=== PATIENT | male | born 1990 | race African-American/Black ===

== ENCOUNTER 2019-06-15 07:09 | Emergency (ER) | payer MEDICAID, OTHER ==
[~2019-06-15] VITALS: Ht 175.3 cm; Wt 100.0 kg
[~2019-06-15 07:09] MED LIST: albuterol
[2019-06-15] MEDS ORDERED: PREDNISONE 20MG TABLET PO STA (07:19)
[2019-06-15] MEDS ORDERED: IPRATROPIUM BROMIDE (0.02%) 0.5MG/2.5ML NEB HHN STA (07:19)
[2019-06-15] MEDS ORDERED: ALBUTEROL (0.083%) 2.5MG/3ML NEB HHN STA (07:19)
[2019-06-15 08:51] VITALS: BP 128/78
== END 2019-06-15 08:57 | disposition home or self-care (01) ==
LOC: ER 07:09
DX: J45.901 Unspecified asthma with (acute) exacerbation (principal); F12.10 Cannabis abuse, uncomplicated
CPT/HCPCS: 71045; 94644; 99285; J7512; J7611; Z7610

== ENCOUNTER 2019-06-28 04:30 | Emergency (ER) | payer MEDICAID ==
[~2019-06-28] VITALS: Ht 175.3 cm; Wt 102.0 kg
[2019-06-28] MEDS ORDERED: PREDNISONE 20MG TABLET PO STA (05:02)
[2019-06-28] MEDS ORDERED: IPRATROPIUM BROMIDE (0.02%) 0.5MG/2.5ML NEB HHN STA (05:02)
[2019-06-28] MEDS ORDERED: ALBUTEROL (0.083%) 2.5MG/3ML NEB HHN STA (05:02)
[2019-06-28 06:40] VITALS: BP 125/79
== END 2019-06-28 06:42 | disposition home or self-care (01) ==
LOC: ER 04:30
DX: J45.901 Unspecified asthma with (acute) exacerbation (principal); F17.210 Nicotine dependence, cigarettes, uncomplicated; R03.0 Elevated blood-pressure reading, without diagnosis of hypertension
CPT/HCPCS: 94644; 99285; J7512; J7611; Z7610

== ENCOUNTER 2019-08-11 08:35 | Emergency (ER) | payer MEDICAID ==
[~2019-08-11] VITALS: Ht 175.3 cm; Wt 90.0 kg
[2019-08-11] MEDS ORDERED: IPRATROPIUM/ALBUTEROL 0.5-3(2.5)MG/3ML NEB ONE (09:00)
[2019-08-11] MEDS ORDERED: METHYLPREDNISOLONE SOD SUCC 125 MG/2 ML VIAL IV STA (09:04)
[2019-08-11] MEDS ORDERED: IPRATROPIUM BROMIDE (0.02%) 0.5MG/2.5ML NEB HHN STA ×2 (09:04)
[2019-08-11] MEDS ORDERED: MAGNESIUM 2 G PREMIX 50 ML IV ONE (09:15)
[2019-08-11] MEDS ORDERED: IPRATROPIUM/ALBUTEROL 0.5-3(2.5)MG/3ML NEB HHN ONE ×2 (09:15→11:00)
[2019-08-11 09:19] LABS: HEMATOCRIT. 47.1 % (42.0-52.0); HEMOGLOBIN. 16.6 g/dL (14.0-18.0); MEAN CORPUSCULAR HEMOGLOBIN 31.5 pg (28.0-32.0); MEAN CORPUSCULAR VOLUME 89.2 fL (80.0-94.0); MEAN PLATELET VOLUME 8.7 fl (7.4-10.4); PLATELET 302 x1000/uL (130-400); RED BLOOD CELL COUNT 5.28 mill/uL (4.7-6.1); RED CELL DISTRIBUTION WIDTH 13.3 % (11.6-14.6)
[2019-08-11 09:25] LABS: CHLORIDE 106 mEq/L (98-107)
[2019-08-11] MEDS ORDERED: SODIUM CHLORIDE 0.9% 1,000 ML IV ONE (09:45)
[2019-08-11] MEDS ORDERED: ONDANSETRON HCL 4MG/2ML INJ IV ONE (09:45)
[2019-08-11 10:05] LABS: PLATELET ESTIMATE NORMAL
[2019-08-11 12:29] VITALS: BP 124/90
== END 2019-08-11 12:31 | disposition home or self-care (01) ==
LOC: ER 08:35
DX: J45.901 Unspecified asthma with (acute) exacerbation (principal)
CPT/HCPCS: 36415; 71045; 80053; 85025; 94640; 96374; 96375; 99284; J2930; J3475; J7030; J7620; Z7610

== ENCOUNTER 2019-08-18 08:54 | Inpatient (IN) | payer MEDICAID ==
[2019-08-18] VITALS (10 sets, daily range): BP systolic 107–178; BP diastolic 44–117
[~2019-08-18] VITALS: Ht 175.3 cm; Wt 102.1 kg
[2019-08-18] MEDS ORDERED: ALBUTEROL (0.083%) 2.5MG/3ML NEB HHN STA (09:03)
[2019-08-18] MEDS ORDERED: IPRATROPIUM BROMIDE (0.02%) 0.5MG/2.5ML NEB HHN STA (09:03)
[2019-08-18] MEDS ORDERED: METHYLPREDNISOLONE SOD SUCC 125 MG/2 ML VIAL IV STA (09:03)
[2019-08-18] MEDS ORDERED: SODIUM CHLORIDE 0.9% 1,000 ML IV ONE (09:03)
[2019-08-18] MEDS ORDERED: MAGNESIUM 2 G PREMIX 50 ML IV ONE (09:15)
[2019-08-18] MEDS ORDERED: EPINEPHRINE 1:1000 1 MG/ML AMP SUBCUT ONE (09:15)
[2019-08-18 09:22] LABS: BASOPHILS % 0.6 % (0.0-2.0); EOSINOPHILS % 10.8 % (0.0-5.0); HEMATOCRIT. 43.9 % (42.0-52.0); HEMOGLOBIN. 15.1 g/dL (14.0-18.0); LYMPHOCYTES % 22.8 % (20.0-50.0); MEAN CORPUSCULAR HEMOGLOBIN 31.3 pg (28.0-32.0); MEAN PLATELET VOLUME 8.4 fl (7.4-10.4); MONOCYTES % 8.4 % (2.0-8.0); NEUTROPHILS % 57.4 % (40.0-76.0); PLATELET 306 x1000/uL (130-400); RED BLOOD CELL COUNT 4.83 mill/uL (4.7-6.1); RED CELL DISTRIBUTION WIDTH 13.3 % (11.6-14.6)
[2019-08-18 09:23] LABS: CHLORIDE 109 mEq/L (98-107)
[2019-08-18 10:18] LABS: BG BASE EXCESS -1.1 mmol/L (-2.0-2.0); BG BILEVEL POS AIRWAY PRESSURE 15/5; BG CARBOXYHEMOGLOBIN 0.1 % (0.5-1.5); BG DEOXYHEMOGLOBIN 0.7 % (0.0-5.0); BG FRACTION INSPIRED OXYGEN 60; BG METHEMOGLOBIN 0.3 % (0.0-1.5); BG OXYGEN SATURATION 99.3 % (92.0-98.5); BG OXYHEMOGLOBIN 98.9 % (94.0-97.0); BG PCO2 52.7 mmHg (35.0-45.0); BG PH 7.311 (7.350-7.450); BG PO2 363.3 mmHg (75.0-100.0); BG SAMPLE SITE RIGHT BRACHIAL; BG TOTAL HEMOGLOBIN 14.7 g/dL (12.0-18.0); BG VENT MODE MASK - BIPAP
[2019-08-18] MEDS ORDERED: GUAIFENESIN 200MG/10ML SUGAR FREE UDC PO PRN (13:15)
[2019-08-18] MEDS ORDERED: ONDANSETRON HCL 4MG/2ML INJ IV PRN (13:15)
[2019-08-18] MEDS ORDERED: ACETAMINOPHEN 325MG TABLET PO PRN (13:15)
[2019-08-18] MEDS ORDERED: HYDROCODONE/ACETAMINOPHEN 5/325MG TABLET PO PRN (13:15)
[2019-08-18] MEDS ORDERED: DOCUSATE SODIUM 100MG CAPSULE PO PRN (13:15)
[2019-08-18] MEDS ORDERED: CLONIDINE 0.1MG TABLET PO PRN (13:15)
[2019-08-18] MEDS: METHYLPREDNISOLONE SOD SUCC 125 MG/2 ML VIAL IV SCH ×2 (15:50→22:43)
[2019-08-18] MEDS: IPRATROPIUM/ALBUTEROL 0.5-3(2.5)MG/3ML NEB HHN SCH ×2 (16:53→21:34)
[2019-08-19] VITALS (16 sets, daily range): BP systolic 13–136; BP diastolic 30–73
[2019-08-19] MEDS: IPRATROPIUM/ALBUTEROL 0.5-3(2.5)MG/3ML NEB HHN SCH ×6 (00:49→20:52)
[2019-08-19] MEDS: METHYLPREDNISOLONE SOD SUCC 125 MG/2 ML VIAL IV SCH ×3 (06:30→21:53)
[2019-08-19 07:02] LABS: HEMATOCRIT. 41.4 % (42.0-52.0); HEMOGLOBIN. 14.2 g/dL (14.0-18.0); MEAN CORPUSCULAR HEMOGLOBIN 30.8 pg (28.0-32.0); MEAN CORPUSCULAR VOLUME 89.7 fL (80.0-94.0); MEAN PLATELET VOLUME 8.5 fl (7.4-10.4); PLATELET 299 x1000/uL (130-400); RED BLOOD CELL COUNT 4.61 mill/uL (4.7-6.1); RED CELL DISTRIBUTION WIDTH 13.6 % (11.6-14.6)
[2019-08-19 07:18] LABS: CHLORIDE 107 mEq/L (98-107)
[2019-08-19 10:01] LABS: PLATELET ESTIMATE NORMAL
[2019-08-19] MEDS: MONTELUKAST SODIUM 10MG TABLET PO SCH (16:17)
[2019-08-20] MEDS: IPRATROPIUM/ALBUTEROL 0.5-3(2.5)MG/3ML NEB HHN SCH ×5 (00:48→16:27)
[2019-08-20 03:52] VITALS: BP 107/61
[2019-08-20] MEDS: METHYLPREDNISOLONE SOD SUCC 125 MG/2 ML VIAL IV SCH ×2 (05:32→15:02)
[2019-08-20 08:00] VITALS: BP 112/71
[2019-08-20 12:00] VITALS: BP 137/44
[2019-08-20] MEDS ORDERED: ALBU18HF2 IH (15:04)
[2019-08-20] MEDS ORDERED: FAMO-135 MT (15:04)
[2019-08-20] MEDS ORDERED: P20 MT (15:04)
[2019-08-20] MEDS ORDERED: MONT10TA21 MT (15:04)
[2019-08-20] MEDS ORDERED: PANT40TA4 MT (15:04)
[2019-08-20] MEDS ORDERED: FLUT1DIS3 INH (15:04)
[2019-08-20] MEDS ORDERED: LORA10TA7 MT (15:04)
[2019-08-20 16:00] VITALS: BP 139/66
[2019-08-20 16:05] VITALS: BP 139/66
[2019-08-20] MEDS: MONTELUKAST SODIUM 10MG TABLET PO SCH (16:26)
== END 2019-08-20 17:19 | disposition home or self-care (01) | DRG 133 ==
LOC: ER 08:54 → 5EST 10:40 → ENRESERV 11:12
PROVIDERS: ADMIT Internal Medicine; ATTEND Internal Medicine
PROC: 5A09357 Assistance with Respiratory Ventilation, Less than 24 Consecutive Hours, Continuous Positive Airway Pressure (ICD-10-PCS; principal; 2019-08-18)
DX: J96.00 Acute respiratory failure, unspecified whether with hypoxia or hypercapnia (principal); D72.1 Eosinophilia; E87.2 Acidosis; J45.902 Unspecified asthma with status asthmaticus; R00.0 Tachycardia, unspecified; I10 Essential (primary) hypertension; J96.02 Acute respiratory failure with hypercapnia; T38.0X5A Adverse effect of glucocorticoids and synthetic analogues, initial encounter; Z87.891 Personal history of nicotine dependence; Y92.89 Other specified places as the place of occurrence of the external cause
CPT/HCPCS: 36415; 36600; 71045; 80048; 82375; 82805; 83880; 84484; 93005; 94640; 94660; 99291; J2930; J3475; J3490; J7030; J7611; J7620

== ENCOUNTER 2020-02-19 00:13 | Inpatient (IN) | payer MEDICAID ==
[2020-02-19] VITALS (8 sets, daily range): BP systolic 121–144; BP diastolic 52–85
[~2020-02-19] VITALS: Ht 175.3 cm; Wt 97.1 kg
[~2020-02-19 00:13] MED LIST changes: +ALBU18HF2 IH; +FAMO-135 MT; +FLUT1DIS3 INH; +LORA10TA7 MT; +MONT10TA21 MT; +P20 MT; +PANT40TA4 MT; -albuterol
[2020-02-19] MEDS ORDERED: METHYLPREDNISOLONE SOD SUCC 125 MG/2 ML VIAL IV STA (00:33)
[2020-02-19] MEDS ORDERED: IPRATROPIUM BROMIDE (0.02%) 0.5MG/2.5ML NEB HHN STA (00:33)
[2020-02-19] MEDS ORDERED: ONDANSETRON HCL 4MG/2ML INJ IV STA (00:33)
[2020-02-19] MEDS ORDERED: SODIUM CHLORIDE 0.9% 1,000 ML IV ONE (00:33)
[2020-02-19] MEDS ORDERED: MAGNESIUM 2 G PREMIX 50 ML IV ONE (00:45)
[2020-02-19 01:08] LABS: BASOPHILS % 0.9 % (0.0-2.0); EOSINOPHILS % 10.8 % (0.0-5.0); HEMATOCRIT. 45.5 % (42.0-52.0); HEMOGLOBIN. 15.7 g/dL (14.0-18.0); LYMPHOCYTES % 30.1 % (20.0-50.0); MEAN CORPUSCULAR HEMOGLOBIN 30.7 pg (28.0-32.0); MEAN CORPUSCULAR VOLUME 89.1 fL (80.0-94.0); MEAN PLATELET VOLUME 8.6 fl (7.4-10.4); MONOCYTES % 9.2 % (2.0-8.0); PLATELET 313 x1000/uL (130-400); RED BLOOD CELL COUNT 5.11 mill/uL (4.7-6.1); RED CELL DISTRIBUTION WIDTH 13.6 % (11.6-14.6)
[2020-02-19 01:11] LABS: CHLORIDE 106 mEq/L (98-107)
[2020-02-19 01:25] LABS: BG BASE EXCESS -2.6 mmol/L (-2.0-2.0); BG BILEVEL POS AIRWAY PRESSURE 15/5; BG CARBOXYHEMOGLOBIN 0.2 % (0.5-1.5); BG DEOXYHEMOGLOBIN 4.3 % (0.0-5.0); BG FRACTION INSPIRED OXYGEN 50; BG HCO3 ACT 23.4 mmol/L (22.0-26.0); BG METHEMOGLOBIN 0.2 % (0.0-1.5); BG OXYGEN SATURATION 95.7 % (92.0-98.5); BG OXYHEMOGLOBIN 95.3 % (94.0-97.0); BG PCO2 45.1 mmHg (35.0-45.0); BG PH 7.333 (7.350-7.450); BG PO2 84.2 mmHg (75.0-100.0); BG SAMPLE SITE RIGHT RADIAL; BG TOTAL HEMOGLOBIN 14.6 g/dL (12.0-18.0); BG VENT MODE MASK - BIPAP; BG VENT RATE 18 set
[2020-02-19] MEDS: ALBUTEROL (0.083%) 2.5MG/3ML NEB HHN SCH ×3 (01:34→02:38)
[2020-02-19] MEDS ORDERED: IPRATROPIUM/ALBUTEROL 0.5-3(2.5)MG/3ML NEB NEB PRN (06:30)
[2020-02-19] MEDS ORDERED: MAGNESIUM/ALUMINUM HYDROXIDE/SIMETHICONE 30ML UDC PO PRN (06:30)
[2020-02-19] MEDS ORDERED: DOCUSATE SODIUM 100MG CAPSULE PO PRN (06:30)
[2020-02-19] MEDS ORDERED: LORAZEPAM 0.5MG TABLET PO PRN (06:30)
[2020-02-19] MEDS ORDERED: ACETAMINOPHEN 325MG TABLET PO PRN ×2 (06:30)
[2020-02-19] MEDS ORDERED: CLONIDINE 0.1MG TABLET PO PRN (06:30)
[2020-02-19] MEDS ORDERED: ZOLPIDEM TARTRATE 5MG TABLET PO PRN (06:30)
[2020-02-19] MEDS ORDERED: KETOROLAC 15MG/ML VIAL IV PRN (06:30)
[2020-02-19] MEDS ORDERED: ONDANSETRON HCL 4MG/2ML INJ IV PRN (06:30)
[2020-02-19] MEDS ORDERED: NITROGLYCERIN 0.4MG TABLET SL SL PRN (06:30)
[2020-02-19] MEDS ORDERED: GUAIFENESIN 200MG/10ML SUGAR FREE UDC PO PRN (06:30)
[2020-02-19] MEDS ORDERED: LEVOFLOXACIN 500MG PREMIX 100 ML IV SCH (08:15)
[2020-02-19] MEDS: GUAIFENESIN/DM 600MG/30MG ER TAB 12HR PO SCH ×2 (08:18→21:25)
[2020-02-19] MEDS ORDERED: ZINC SULFATE 220 MG ( 50 ) CAPSULE PO SCH (10:00)
[2020-02-19] MEDS: METHYLPREDNISOLONE SOD SUCC 125 MG/2 ML VIAL IV SCH ×3 (10:26→22:45)
[2020-02-19] MEDS: ASCORBIC ACID 500 MG TABLET PO SCH ×2 (10:27→21:25)
[2020-02-19] MEDS ORDERED: POTASSIUM CHLORIDE 20MEQ TABLET SR PO SCH (11:00)
[2020-02-19] MEDS: FAMOTIDINE 20MG TABLET PO SCH ×2 (11:42→21:25)
[2020-02-19 14:18] LABS: CLARITY URINE CLEAR (CLEAR); COLOR URINE YELLOW (YELLOW); KETONES URINE TRACE (NEGATIVE); LEUKOCYTE ESTERASE URINE NEGATIVE (NEGATIVE); NITRITE URINE NEGATIVE (NEGATIVE); OCCULT BLOOD URINE NEGATIVE (NEGATIVE); PH URINE 5.5 (4.5-8.0); PROTEIN URINE NEGATIVE (NEGATIVE); SPECIFIC GRAVITY URINE 1.024 (1.005-1.030)
[2020-02-19 14:45] LABS: *BARBITURATES SCREEN URINE NEGATIVE (NEGATIVE)
[2020-02-19 14:47] LABS: *AMPHETAMINES SCREEN URINE PRESUMTIVE POSITIVE (NEGATIVE); *BENZODIAZEPINES SCREEN URINE PRESUMTIVE POSITIVE (NEGATIVE); *COCAINE SCREEN URINE NEGATIVE (NEGATIVE); CANNABINOID URINE SCREEN PRESUMTIVE POSITIVE (NEGATIVE); METHADONE URINE SCREEN NEGATIVE (NEGATIVE); OPIATES URINE SCREEN NEGATIVE (NEGATIVE); PHENCYCLIDINE URINE SCREEN NEGATIVE (NEGATIVE)
[2020-02-19] MEDS: IPRATROPIUM/ALBUTEROL 0.5-3(2.5)MG/3ML NEB HHN SCH ×2 (16:12→20:36)
[2020-02-19] MEDS ORDERED: MONTELUKAST SODIUM 10MG TABLET PO SCH (17:00)
[2020-02-20] VITALS: BP 139/86
[2020-02-20] MEDS: IPRATROPIUM/ALBUTEROL 0.5-3(2.5)MG/3ML NEB HHN SCH ×3 (00:55→08:22)
[2020-02-20 02:00] VITALS: BP 115/74
[2020-02-20 04:00] VITALS: BP 120/76
[2020-02-20] MEDS: METHYLPREDNISOLONE SOD SUCC 125 MG/2 ML VIAL IV SCH (05:54)
[2020-02-20 06:00] VITALS: BP 116/67
[2020-02-20 06:52] LABS: HEMATOCRIT. 43.4 % (42.0-52.0); HEMOGLOBIN. 15.2 g/dL (14.0-18.0); MEAN CORPUSCULAR VOLUME 88.4 fL (80.0-94.0); MEAN PLATELET VOLUME 9.1 fl (7.4-10.4); PLATELET 294 x1000/uL (130-400); RED BLOOD CELL COUNT 4.91 mill/uL (4.7-6.1); RED CELL DISTRIBUTION WIDTH 13.5 % (11.6-14.6)
[2020-02-20 07:59] VITALS: BP 114/57
[2020-02-20 08:04] LABS: CHLORIDE 105 mEq/L (98-107)
[2020-02-20 08:16] LABS: PHOSPHORUS 3.2 mg/dL (2.5-4.9)
[2020-02-20 08:30] VITALS: BP 139/57
[2020-02-20] MEDS ORDERED: LEVOFLOXACIN 500MG PREMIX 100 ML IV SCH ×2 (09:00)
[2020-02-20] MEDS ORDERED: LORATADINE 10MG TABLET PO SCH (09:00)
[2020-02-20 16:23] LABS: PLATELET ESTIMATE NORMAL
== END 2020-02-20 09:30 | disposition home or self-care (01) | DRG 140 ==
LOC: ER 00:17 → 3WST 03:15 → ENRESERV 08:17
PROVIDERS: ADMIT Internal Medicine; ATTEND Internal Medicine
PROC: 5A09357 Assistance with Respiratory Ventilation, Less than 24 Consecutive Hours, Continuous Positive Airway Pressure (ICD-10-PCS; principal; 2020-02-19)
DX: J44.1 Chronic obstructive pulmonary disease with (acute) exacerbation (principal); J96.01 Acute respiratory failure with hypoxia; J96.02 Acute respiratory failure with hypercapnia; J45.902 Unspecified asthma with status asthmaticus; D72.1 Eosinophilia; E87.6 Hypokalemia; F12.10 Cannabis abuse, uncomplicated; F13.10 Sedative, hypnotic or anxiolytic abuse, uncomplicated; Z82.5 Family history of asthma and other chronic lower respiratory diseases; Z87.01 Personal history of pneumonia (recurrent); Z79.899 Other long term (current) drug therapy
CPT/HCPCS: 36415; 36600; 71045; 80053; 80061; 80305; 81003; 82375; 82805; 83036; 83605; 83735; 83880; 84100; 84484; 85025; 93970; 94640; 99291; J1956; J2405; J2930; J3475; J7030

== ENCOUNTER 2021-10-31 14:30 | Emergency (ER) | payer MEDICAID ==
[~2021-10-31] VITALS: Ht 175.3 cm; Wt 98.0 kg
[~2021-10-31 14:30] MED LIST changes: -PANT40TA4 MT; +PANT40TA51 MT
[2021-10-31] MEDS ORDERED: LIDOCAINE HCL/PF 1% 10 MG/ML 5ML VIAL INFIL ONE (16:00)
[2021-10-31] MEDS ORDERED: LIDOCAINE HCL 1% 20ML VIAL (Pyxis) INJ INFIL NR (16:32)
[2021-10-31] MEDS ORDERED: IBUPROFEN 600MG TABLET PO STA (16:38)
[2021-10-31] MEDS ORDERED: IBUP-2029 PO (17:25)
[2021-10-31] MEDS ORDERED: CEPH500T PO (17:25)
[2021-10-31] MEDS ORDERED: TETANUS, DIPHTHERIA, PERTUSSIS VAC/PF 0.5ML (>10YR OLD) IM ONE (17:30)
[2021-10-31 17:40] VITALS: BP 120/72
== END 2021-10-31 17:41 | disposition home or self-care (01) ==
LOC: ER 14:45
DX: S01.511A Laceration without foreign body of lip, initial encounter (principal); W01.10XA Fall on same level from slipping, tripping and stumbling with subsequent striking against unspecified object, initial encounter; Y93.89 Activity, other specified; Y92.89 Other specified places as the place of occurrence of the external cause
CPT/HCPCS: 90471; 90715; 99283; J3490

== ENCOUNTER 2021-11-07 16:18 | Emergency (ER) | payer MEDICAID ==
[~2021-11-07] VITALS: Ht 180.3 cm; Wt 84.0 kg
[~2021-11-07 16:18] MED LIST changes: +CEPH500T PO; +IBUP-2029 PO
[2021-11-07 16:33] VITALS: BP 123/49
== END 2021-11-07 18:24 | disposition home or self-care (01) ==
LOC: ER 16:18
DX: Z48.02 Encounter for removal of sutures (principal)
CPT/HCPCS: 99281

== ENCOUNTER 2022-03-15 17:15 | Emergency (ER) | payer MEDICAID, OTHER ==
[~2022-03-15] VITALS: Ht 177.8 cm; Wt 90.0 kg
[2022-03-15 17:20] VITALS: BP 118/70
[2022-03-15] MEDS ORDERED: ONDANSETRON 4MG ODT PO ONE (17:45)
[2022-03-15] MEDS ORDERED: IBUPROFEN 600MG TABLET PO ONE (17:45)
[2022-03-15] MEDS ORDERED: IBUP-2029 MT (19:33)
[2022-03-15] MEDS ORDERED: ONDA4TAB5 MT (19:33)
== END 2022-03-15 19:54 | disposition home or self-care (01) ==
LOC: ER 17:15
DX: U07.1 COVID-19 (principal)
CPT/HCPCS: 99283

== ENCOUNTER 2022-05-17 08:14 | Emergency (ER) | payer MEDICAID, OTHER ==
[~2022-05-17] VITALS: Ht 182.9 cm; Wt 95.0 kg
[~2022-05-17 08:14] MED LIST changes: +IBUP-2029 MT; +ONDA4TAB5 MT
[2022-05-17 08:16] VITALS: BP 136/84
[2022-05-17] MEDS ORDERED: KETOROLAC 30MG/ML VIAL IV STA (08:24)
[2022-05-17] MEDS ORDERED: SODIUM CHLORIDE 0.9% 1,000 ML IV ONE (08:30)
[2022-05-17 09:29] LABS: BASOPHILS % 0.6 % (0.0-2.0); EOSINOPHILS % 7.1 % (0.0-5.0); HEMATOCRIT. 48.7 % (42.0-52.0); HEMOGLOBIN. 16.3 g/dL (14.0-18.0); MEAN CORPUSCULAR HEMOGLOBIN 30.6 pg (28.0-32.0); MEAN CORPUSCULAR VOLUME 91.4 fL (80.0-94.0); NEUTROPHILS % 63.3 % (40.0-76.0); RED BLOOD CELL COUNT 5.33 mill/uL (4.7-6.1); RED CELL DISTRIBUTION WIDTH 13.7 % (11.6-14.6)
[2022-05-17 09:35] LABS: CHLORIDE 104 mEq/L (98-107)
[2022-05-17] MEDS ORDERED: HALOPERIDOL LACTATE 5MG/ML VIAL IM ONE (09:45)
[2022-05-17] MEDS ORDERED: DIPHENHYDRAMINE 50MG/ML VIAL IV ONE (09:45)
[2022-05-17 10:37] LABS: PLATELET 295 x1000/uL (130-400)
[2022-05-17] MEDS ORDERED: ONDA4TAB11 PO (11:10)
== END 2022-05-17 11:19 | disposition home or self-care (01) ==
LOC: ER 08:14
DX: K29.70 Gastritis, unspecified, without bleeding (principal)
CPT/HCPCS: 36415; 80053; 83690; 85025; 96361; 96372; 96374; 96375; 99284; J1200; J1630; J1885; J7030

== ENCOUNTER 2022-05-19 13:58 | Emergency (ER) | payer OTHER ==
[~2022-05-19] VITALS: Ht 167.6 cm; Wt 93.0 kg
[~2022-05-19 13:58] MED LIST changes: +ONDA4TAB11 PO
[2022-05-19] MEDS ORDERED: ONDANSETRON HCL 4MG/2ML INJ IV STA (14:09)
[2022-05-19] MEDS ORDERED: KETOROLAC 30MG/ML VIAL IV STA (14:09)
[2022-05-19] MEDS ORDERED: SODIUM CHLORIDE 0.9% 1,000 ML IV ONE (14:15)
[2022-05-19 14:35] LABS: BASOPHILS % 0.5 % (0.0-2.0); EOSINOPHILS % 0.1 % (0.0-5.0); HEMATOCRIT. 44.3 % (42.0-52.0); HEMOGLOBIN. 15.5 g/dL (14.0-18.0); LYMPHOCYTES % 23.1 % (20.0-50.0); MEAN CORPUSCULAR HEMOGLOBIN 30.8 pg (28.0-32.0); MEAN CORPUSCULAR VOLUME 87.8 fL (80.0-94.0); MEAN PLATELET VOLUME 8.6 fl (7.4-10.4); MONOCYTES % 7.8 % (2.0-8.0); NEUTROPHILS % 68.5 % (40.0-76.0); PLATELET 303 x1000/uL (130-400); RED BLOOD CELL COUNT 5.04 mill/uL (4.7-6.1); RED CELL DISTRIBUTION WIDTH 13.3 % (11.6-14.6)
[2022-05-19 14:44] LABS: CHLORIDE 106 mEq/L (98-107)
[2022-05-19 14:45] LABS: INR 1.2; PROTHROMBIN TIME 12.4 sec (9.6-11.0)
[2022-05-19 14:52] LABS: ETHANOL BLOOD < 10 mg/dL
[2022-05-19] MEDS ORDERED: ONDA4TAB50 MT (17:51)
[2022-05-19] MEDS ORDERED: OMEP40CA20 MT (17:51)
[2022-05-19] MEDS ORDERED: MAGNESIUM/ALUMINUM HYDROXIDE/SIMETHICONE 30ML UDC PO ONE ×2 (18:00→18:15)
[2022-05-19] MEDS ORDERED: ONDANSETRON HCL 4MG/2ML INJ IV NR (18:15)
[2022-05-19] MEDS ORDERED: KETOROLAC 30MG/ML VIAL IV NR (18:15)
[2022-05-19 18:21] VITALS: BP 105/79
[2022-05-19 18:39] LABS: CLARITY URINE CLEAR (CLEAR); COLOR URINE DARK YELLOW (YELLOW); KETONES URINE 3+ (NEGATIVE); LEUKOCYTE ESTERASE URINE NEGATIVE (NEGATIVE); NITRITE URINE NEGATIVE (NEGATIVE); OCCULT BLOOD URINE NEGATIVE (NEGATIVE); PH URINE 8.5 (4.5-8.0); PROTEIN URINE 2+ (NEGATIVE); SPECIFIC GRAVITY URINE 1.029 (1.005-1.030)
[2022-05-19 18:53] LABS: *AMPHETAMINES SCREEN URINE NEGATIVE (NEGATIVE); *BARBITURATES SCREEN URINE NEGATIVE (NEGATIVE); *BENZODIAZEPINES SCREEN URINE NEGATIVE (NEGATIVE); *COCAINE SCREEN URINE PRESUMTIVE POSITIVE (NEGATIVE); CANNABINOID URINE SCREEN PRESUMTIVE POSITIVE (NEGATIVE); METHADONE URINE SCREEN NEGATIVE (NEGATIVE); OPIATES URINE SCREEN NEGATIVE (NEGATIVE); PHENCYCLIDINE URINE SCREEN NEGATIVE (NEGATIVE)
== END 2022-05-19 19:34 | disposition home or self-care (01) ==
LOC: ER 13:58
DX: R10.33 Periumbilical pain (principal); R11.2 Nausea with vomiting, unspecified
CPT/HCPCS: 36415; 74176; 80053; 80305; 80320; 81003; 83690; 85025; 85610; 96361; 96374; 96375; 99284; J1885; J2405; J7030; G0480

== ENCOUNTER 2022-05-24 11:18 | Emergency (ER) | payer OTHER ==
[~2022-05-24] VITALS: Ht 175.3 cm; Wt 82.0 kg
[~2022-05-24 11:18] MED LIST changes: +OMEP40CA20 MT; +ONDA4TAB50 MT
[2022-05-24] MEDS ORDERED: ONDANSETRON 4MG ODT PO STA (12:39)
[2022-05-24] MEDS ORDERED: KETOROLAC 60MG/2ML VIAL IM STA (12:39)
[2022-05-24 12:54] LABS: BASOPHILS % 0.7 % (0.0-2.0); EOSINOPHILS % 7.1 % (0.0-5.0); HEMATOCRIT. 44.9 % (42.0-52.0); HEMOGLOBIN. 15.4 g/dL (14.0-18.0); LYMPHOCYTES % 14.2 % (20.0-50.0); MEAN CORPUSCULAR VOLUME 90.4 fL (80.0-94.0); MEAN PLATELET VOLUME 8.9 fl (7.4-10.4); MONOCYTES % 7.2 % (2.0-8.0); NEUTROPHILS % 70.8 % (40.0-76.0); PLATELET 304 x1000/uL (130-400); RED BLOOD CELL COUNT 4.97 mill/uL (4.7-6.1); RED CELL DISTRIBUTION WIDTH 13.5 % (11.6-14.6)
[2022-05-24 12:57] LABS: CHLORIDE 105 mEq/L (98-107)
[2022-05-24] MEDS ORDERED: KETOROLAC 30MG/ML VIAL IV STA (12:57)
[2022-05-24] MEDS ORDERED: METOCLOPRAMIDE HCL 10MG/2ML VIAL IV STA (12:57)
[2022-05-24] MEDS ORDERED: SODIUM CHLORIDE 0.9% 1,000 ML IV ONE (13:00)
[2022-05-24 13:09] LABS: ETHANOL BLOOD < 10 mg/dL
[2022-05-24] MEDS ORDERED: ONDA4TAB11 PO (14:28)
[2022-05-24 15:15] VITALS: BP 126/80
== END 2022-05-24 15:17 | disposition home or self-care (01) ==
LOC: ER 11:18
DX: R10.13 Epigastric pain (principal); R06.02 Shortness of breath; R94.31 Abnormal electrocardiogram [ECG] [EKG]; F12.90 Cannabis use, unspecified, uncomplicated; J45.909 Unspecified asthma, uncomplicated; Z82.49 Family history of ischemic heart disease and other diseases of the circulatory system; Z79.51 Long term (current) use of inhaled steroids; Z79.899 Other long term (current) drug therapy
CPT/HCPCS: 36415; 76705; 80053; 80320; 83690; 85025; 93005; 96361; 96374; 96375; 99285; J1885; J2765; J7030; G0480

== ENCOUNTER 2022-07-30 05:35 | Emergency (ER) | payer MEDICAID, OTHER ==
[~2022-07-30] VITALS: Ht 172.7 cm; Wt 82.0 kg
[2022-07-30] MEDS ORDERED: IPRATROPIUM BROMIDE (0.02%) 0.5MG/2.5ML NEB HHN STA (05:43)
[2022-07-30] MEDS ORDERED: ALBUTEROL (0.083%) 2.5MG/3ML NEB HHN STA (05:43)
[2022-07-30] MEDS ORDERED: PREDNISONE 20MG TABLET PO STA (05:43)
[2022-07-30] MEDS ORDERED: P50 MT (06:44)
[2022-07-30] MEDS ORDERED: ALBU6.7H3 INH (06:44)
[2022-07-30] MEDS ORDERED: IBUPROFEN 600MG TABLET PO ONE (07:30)
[2022-07-30] MEDS ORDERED: ALBUTEROL (0.083%) 2.5MG/3ML NEB HHN ONE (07:30)
[2022-07-30 09:16] VITALS: BP 140/69
== END 2022-07-30 09:18 | disposition home or self-care (01) ==
LOC: ER 05:45
DX: J45.901 Unspecified asthma with (acute) exacerbation (principal); Z79.899 Other long term (current) drug therapy
CPT/HCPCS: 71045; 73610; 94640; 99284; J7512; Z7610

== ENCOUNTER 2023-02-28 06:07 | Emergency (ER) | payer MEDICAID ==
[~2023-02-28] VITALS: Ht 177.8 cm; Wt 104.0 kg
[~2023-02-28 06:07] MED LIST changes: +ALBU6.7H3 INH; +MONT-46 MT; -MONT10TA21 MT; +P50 MT
[2023-02-28] MEDS ORDERED: IPRATROPIUM BROMIDE (0.02%) 0.5MG/2.5ML NEB HHN STA (06:12)
[2023-02-28] MEDS ORDERED: MAGNESIUM 2 G PREMIX 50 ML IV STA (06:12)
[2023-02-28] MEDS ORDERED: METHYLPREDNISOLONE SOD SUCC 125 MG/2 ML VIAL IV STA (06:12)
[2023-02-28] MEDS ORDERED: ALBUTEROL (0.083%) 2.5MG/3ML NEB HHN STA (06:12)
[2023-02-28] MEDS ORDERED: P50 PO (08:18)
[2023-02-28] MEDS ORDERED: ALBU6.7H3 INH (08:18)
[2023-02-28 09:24] VITALS: BP 156/66
== END 2023-02-28 09:37 | disposition home or self-care (01) ==
LOC: ER 06:07
DX: J45.909 Unspecified asthma, uncomplicated (principal); Z79.899 Other long term (current) drug therapy
CPT/HCPCS: 71045; 94640; 96365; 96375; 99284; J2930; J3475; Z7610

== ENCOUNTER 2023-03-03 10:14 | Emergency (ER) | payer MEDICAID ==
[~2023-03-03] VITALS: Ht 175.3 cm; Wt 93.0 kg
[~2023-03-03 10:14] MED LIST changes: +P50 PO
[2023-03-03 10:21] VITALS: BP 127/87
[2023-03-03] MEDS ORDERED: PREDNISONE 20MG TABLET PO STA (11:57)
[2023-03-03] MEDS ORDERED: IPRATROPIUM BROMIDE (0.02%) 0.5MG/2.5ML NEB HHN STA (11:57)
[2023-03-03] MEDS ORDERED: ALBUTEROL (0.083%) 2.5MG/3ML NEB HHN SCH (12:00)
== END 2023-03-03 13:01 | disposition left against medical advice (07) ==
LOC: ER 10:52
DX: J45.901 Unspecified asthma with (acute) exacerbation (principal); Z79.899 Other long term (current) drug therapy
CPT/HCPCS: 71045; 99283; J7512

== ENCOUNTER 2023-08-05 07:51 | Emergency (ER) | payer MEDICAID ==
[~2023-08-05] VITALS: Ht 180.3 cm; Wt 81.0 kg
[2023-08-05] MEDS ORDERED: ALBUTEROL (0.083%) 2.5MG/3ML NEB HHN STA (08:01)
[2023-08-05] MEDS ORDERED: MAGNESIUM 2 G PREMIX 50 ML IV STA (08:01)
[2023-08-05] MEDS ORDERED: METHYLPREDNISOLONE SOD SUCC 125MG/2ML (ACT-O-VIAL) IV STA (08:01)
[2023-08-05] MEDS ORDERED: IPRATROPIUM BROMIDE (0.02%) 0.5MG/2.5ML NEB HHN STA (08:01)
[2023-08-05 08:20] VITALS: PULSE 84; RESP 24; O2SAT 95
[2023-08-05 08:51] LABS: HEMOGLOBIN 15.9 g/dL (14.0-18.0); MEAN CORPUSCULAR HEMOGLOBIN 31.1 pg (28.0-32.0); MEAN CORPUSCULAR HGB CONC 34.6 g/dL (31.0-37.0); PLATELET 315 x1000/uL (130-400); RED BLOOD CELL COUNT 5.11 mill/uL (4.7-6.1); RED CELL DISTRIBUTION WIDTH 13.1 % (11.6-14.6); WHITE BLOOD COUNT 5.3 x1000/uL (4.5-11.0)
[2023-08-05 09:07] LABS: CHLORIDE 104 mEq/L (98-107); INDEX HEMOLYSI 1 (1-3); INDEX ICTERIC 1 (1-4); INDEX LIPEMIC 1 (1-3); POTASSIUM 3.8 mEq/L (3.5-5.1); SODIUM 138 mEq/L (136-145)
[2023-08-05 09:16] LABS: ALANINE AMINOTRANSFERASE 39 IU/L (13-61); ALBUMIN 3.9 g/dL (3.4-5.0); ASPARTATE AMINOTRANSFERASE 52 IU/L (15-37); BILIRUBIN TOTAL 0.4 mg/dL (0.1-1.0); CALCIUM 9.4 mg/dL (8.5-10.1); CARBON DIOXIDE 27 mEq/L (21-32); GLUCOSE 92 mg/dL (70-105); PROTEIN TOTAL 8.2 g/dL (6.0-8.3); UREA NITROGEN BLOOD 8 mg/dL (7-21)
[2023-08-05] MEDS ORDERED: P20 MT (11:56)
[2023-08-05] MEDS ORDERED: ALBU90AE INH (11:56)
[2023-08-05 12:16] VITALS: BP 125/69; PULSE 72; RESP 12; TEMP 98.4
== END 2023-08-05 12:24 | disposition home or self-care (01) ==
LOC: ER 07:51
DX: J45.901 Unspecified asthma with (acute) exacerbation (principal); Z20.822 Contact with and (suspected) exposure to COVID-19
CPT/HCPCS: 80053; 85027; 87804 ×2; 36415; 71045; 94644; 96365; 96375; 99291; 87426; J3475; J2930; Z7610 ×8; C9803

== ENCOUNTER 2024-02-01 20:54 | Emergency (ER) | payer MEDICAID, OTHER ==
[~2024-02-01] VITALS: Ht 175.3 cm; Wt 82.0 kg
[~2024-02-01 20:54] MED LIST changes: +ALBU90AE INH
[2024-02-01 21:29] VITALS: BP 109/55; PULSE 65; RESP 16; TEMP 98.6; O2SAT 99
[2024-02-01] MEDS ORDERED: NAPR-1176 MT (22:58)
[2024-02-01] MEDS ORDERED: KETOROLAC 15MG/ML VIAL IM ONE (23:00)
== END 2024-02-01 23:12 | disposition home or self-care (01) ==
LOC: ER 21:28
DX: S92.342A Displaced fracture of fourth metatarsal bone, left foot, initial encounter for closed fracture (principal); M79.642 Pain in left hand; J45.909 Unspecified asthma, uncomplicated; Z79.899 Other long term (current) drug therapy; X58.XXXA Exposure to other specified factors, initial encounter; Y93.89 Activity, other specified; Y92.89 Other specified places as the place of occurrence of the external cause; Y99.8 Other external cause status
CPT/HCPCS: 29125; 73130; 99283

== ENCOUNTER 2024-04-01 09:38 | Emergency (ER) | payer MEDICAID ==
[~2024-04-01] VITALS: Ht 175.3 cm; Wt 81.8 kg
[~2024-04-01 09:38] MED LIST changes: +NAPR-1176 MT
[2024-04-01 09:47] VITALS: O2SAT 98
[2024-04-01] MEDS: PREDNISONE 20MG TABLET PO STA (10:52)
[2024-04-01] MEDS ORDERED: ALBU18HF2 IH (11:02)
[2024-04-01] MEDS ORDERED: MONT-46 MT (11:02)
[2024-04-01] MEDS ORDERED: FLUT1DIS3 INH (11:02)
[2024-04-01 11:15] VITALS: PULSE 69; RESP 18
[2024-04-01] MEDS: IPRATROPIUM BROMIDE (0.02%) 0.5MG/2.5ML NEB HHN STA (11:15)
[2024-04-01] MEDS: ALBUTEROL (0.083%) 2.5MG/3ML NEB HHN STA (11:15)
[2024-04-01 11:53] VITALS: BP 135/87; PULSE 71; RESP 17; TEMP 98.5
== END 2024-04-01 11:50 | disposition home or self-care (01) ==
LOC: ER 09:38
DX: J45.901 Unspecified asthma with (acute) exacerbation (principal); F17.210 Nicotine dependence, cigarettes, uncomplicated; Z79.899 Other long term (current) drug therapy
CPT/HCPCS: 94640; 99283; 99406; J7512; Z7610 ×3

== ENCOUNTER 2024-09-02 21:24 | Emergency (ER) | payer MEDICAID ==
[~2024-09-02] VITALS: Ht 175.3 cm; Wt 86.0 kg
[~2024-09-02 21:24] MED LIST changes: +ONDA-239 PO; -ONDA4TAB11 PO
[2024-09-02 21:30] VITALS: O2SAT 100
[2024-09-02 23:55] LABS: BASOPHILS % 1.3 % (0.0-2.0); CHLORIDE 105 mEq/L (98-107); EOSINOPHILS % 12.5 % (0.0-5.0); HEMATOCRIT. 35.4 % (42.0-52.0); HEMOGLOBIN. 12.2 g/dL (14.0-18.0); LYMPHOCYTES % 32.4 % (20.0-50.0); MEAN CORPUSCULAR HEMOGLOBIN 31.5 pg (28.0-32.0); MEAN CORPUSCULAR HGB CONC 34.5 g/dL (31.0-37.0); MEAN CORPUSCULAR VOLUME 91.2 fL (80.0-94.0); MEAN PLATELET VOLUME 7.4 fl (7.4-10.4); MONOCYTES % 10.3 % (2.0-8.0); NEUTROPHILS % 43.5 % (40.0-76.0); PLATELET 440 x1000/uL (130-400); POTASSIUM 3.7 mEq/L (3.5-5.1); RED BLOOD CELL COUNT 3.88 mill/uL (4.7-6.1); RED CELL DISTRIBUTION WIDTH 13.1 % (11.6-14.6); SODIUM 139 mEq/L (136-145); WHITE BLOOD COUNT 6.4 x1000/uL (4.5-11.0)
[2024-09-02 23:56] LABS: CALCIUM 9.4 mg/dL (8.7-10.4); CARBON DIOXIDE 27 mEq/L (21-32)
[2024-09-03 00:01] LABS: CREATININE 0.9 mg/dL (0.6-1.3); GLUCOSE 97 mg/dL (70-105); UREA NITROGEN BLOOD 14 mg/dL (9-23)
[2024-09-03 00:06] LABS: PARTIAL THROMBOPLASTIN TIME 26.8 sec (23.4-31.0); PROTHROMBIN TIME 10.8 sec (9.6-11.0)
[2024-09-03] MEDS ORDERED: IOHEXOL-300 100 ML BOTTLE ONE (02:25)
[2024-09-03 02:42] VITALS: TEMP 36.89184; O2SAT 100
[2024-09-03] MEDS: SODIUM CHLORIDE 0.9% 1,000 ML IV ONE (02:44)
[2024-09-03 02:45] VITALS: BP 116/60; PULSE 79; RESP 17
[2024-09-03] MEDS: KETOROLAC 15MG/ML VIAL IV ONE (02:45)
== END 2024-09-03 08:25 | disposition home or self-care (01) ==
LOC: ER 21:31
DX: M25.552 Pain in left hip (principal); M25.551 Pain in right hip; J45.909 Unspecified asthma, uncomplicated; Z79.899 Other long term (current) drug therapy; Z79.52 Long term (current) use of systemic steroids; Z79.51 Long term (current) use of inhaled steroids; Z79.1 Long term (current) use of non-steroidal anti-inflammatories (NSAID)
CPT/HCPCS: 80048; 83605; 85025; 85610; 85730; 87040; 36415; 71045; 93005; 99285; 72192; 73701; 76376; J7030; Q9967; J1885; Z7610 ×3

== ENCOUNTER 2025-01-13 14:11 | Emergency (ER) | payer MEDICAID ==
[~2025-01-13] VITALS: Ht 175.3 cm; Wt 87.0 kg
[~2025-01-13 14:11] MED LIST changes: +ACET-2708 MT; +ASPI-1497 MT; +CEFT2FRO5 IV; +NAPR-681 MT
[2025-01-13 14:18] VITALS: O2SAT 100
[2025-01-13] MEDS: KETOROLAC 30MG/ML VIAL IM ONE (16:43)
[2025-01-13] MEDS ORDERED: NAPR-679 MT (17:11)
[2025-01-13] MEDS ORDERED: ACET-2708 MT (17:11)
[2025-01-13 17:27] VITALS: BP 120/76; PULSE 80; RESP 14; TEMP 37; O2SAT 100
== END 2025-01-13 17:25 | disposition home or self-care (01) ==
LOC: ER 14:11
DX: S63.693A Other sprain of left middle finger, initial encounter (principal); J45.909 Unspecified asthma, uncomplicated; Z79.1 Long term (current) use of non-steroidal anti-inflammatories (NSAID); Z79.51 Long term (current) use of inhaled steroids; Z79.52 Long term (current) use of systemic steroids; Z79.82 Long term (current) use of aspirin; Z79.899 Other long term (current) drug therapy; X58.XXXA Exposure to other specified factors, initial encounter; Y93.89 Activity, other specified; Y92.89 Other specified places as the place of occurrence of the external cause; Y99.8 Other external cause status
CPT/HCPCS: 99283; 73120; 29125; 96372; J1885